=== PATIENT | female | born 1940 | race Caucasian/White ===

== ENCOUNTER → 2022-03-07 15:09 | Outpatient (BNVA) | payer MEDICARE, SELFPAY | PROVIDERS: Visit Provider Psychiatry & Neurology Psychiatry | DX: F32.4 Major depressive disorder, single episode, in partial remission (principal); R18.8 Other ascites; D84.9 Immunodeficiency, unspecified; J47.9 Bronchiectasis, uncomplicated | CPT/HCPCS: Q3014 ==

== ENCOUNTER 2023-06-12 13:40 | Outpatient (AMB) | payer MEDICARE, SELFPAY ==
--- NOTE | 2023-06-12 14:15 | MHC.OFFVISPS ---
Intake Intake Visit Reasons: depression Allergies Penicillins Allergy (Verified 03/07/22 15:19) Rash Sulfa (Sulfonamide Antibiotics) Adverse Reaction (Verified 03/07/22 15:19) Hives HPI- Psychiatric Chief Complaint: depression HPI Narrative: Patient seen psychiatric follow-up after an extended period of time. The patient's mood has generally been okay. She continues to live in her house despite fatigue breath medical issue but is able to manage does have some help. Her daughter lives nearby. It has been difficult to watch her friends gradually over time and she is under some financial stress but has been quite stable manages emotionally she is on Effexor 100 mg this apparently has been helpful in stabilizing her mood. She continues to manage emotionally Past Psychiatric History: hx recurrent depression has been relatively stable despite multiple medical concerns Mental Status Exam Mental Status Exam Narrative: Mental Status Exam Narrative: Appearance: Casually dressed Behavior: Cooperative psychomotor: Speech: Normal volume and prosody Thought proccess logical and goal-directed Thought content: Future oriented appropriate concerns regarding issues related to aging Mood: Mild melancholy Affect: Appropriate to mood full affect SI:denies HI:denies VH/AH:none Delusions: None Insight/judgment: Good insight and judgment Memory/cog: Intact Assessment and Plan Assessment & Plan (1) Major depressive disorder in partial remission: Status: Acute Code(s): F32.4 - Major depressive disorder, single episode, in partial remission (2) Ascites controlled with medication: Status: Acute Code(s): R18.8 - Other ascites (3) Immune deficiency disorder: Status: Acute Code(s): D84.9 - Immunodeficiency, unspecified (4) Bronchiectasis: Status: Acute Code(s): J47.9 - Bronchiectasis, uncomplicated Plan Continue Venlafaxine discussed option to follow up with her primary care physician 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 Counseling provided to the patient/caregiver as outlined below. Addressed patient/caregiver concerns regarding current medication regime including effective adherence. Addressed patient/caregiver concerns regarding diagnosis and prognosis including accuracy of diagnosis, prognosis over time, impact of diagnosis. Addressed patient/caregiver concerns regarding impact of recent stressors. [facility] Medical History (Updated 03/07/22 @ 15:29 by Manoj Mathew MD) Major depressive disorder in partial remission Ascites controlled with medication Immune deficiency disorder Bronchiectasis Social History: pt 2 children has grandchildren used to be teacher grew up [place] has sister 84 not close Substance History: na Trauma History: pos Coding Level of Care Code Est Pt Level 4 (89503) Diagnoses Major depressive disorder in partial remission F32.4 Ascites controlled with medication R18.8 Immune deficiency disorder D84.9 Bronchiectasis J47.9
== END 2023-06-12 14:33 | disposition home or self-care (01) ==
LOC: HO.HOP 13:40
PROVIDERS: PCP Family Medicine; Visit Provider Psychiatry & Neurology Psychiatry
DX: F32.4 Major depressive disorder, single episode, in partial remission (principal); R18.8 Other ascites; D84.9 Immunodeficiency, unspecified; J47.9 Bronchiectasis, uncomplicated
CPT/HCPCS: 99214

== ENCOUNTER → 2023-06-12 13:40 | Outpatient (BNVA) | payer MEDICARE, SELFPAY | PROVIDERS: PCP Family Medicine; Visit Provider Psychiatry & Neurology Psychiatry | DX: F32.4 Major depressive disorder, single episode, in partial remission (principal); R18.8 Other ascites; D84.9 Immunodeficiency, unspecified; J47.9 Bronchiectasis, uncomplicated | CPT/HCPCS: 99212 ==